=== PATIENT | male | born 1950 | race Two or more races ===

== ENCOUNTER 2022-09-19 12:31 | Inpatient (IN) | payer OTHER ==
[~2022-09-19] VITALS: Ht 180.3 cm; Wt 997.9 kg
--- NOTE | 2022-09-19 12:41 | NUR ---
PTE ALERTA ERNA DESORIENTADO POR BRIANNA ESFERAS VIENE EN MATILDE POR AMBULANCIA. EMT REFIERE QUE BUSCO A PTE EN HOTEL QUE SE ESTABA QUEDANDO, LO ENCONTRARON ESNUDO Y MARINA BULTO LLENO DE 5+ POTES DE OXYCODONE. SE PRESENTA A MEDICO DE TURNO, EL MISMO REFIERE UBICARLO EN AREA DE CHEST PAIN
--- NOTE | 2022-09-19 12:42 | NUR ---
SE OBSERVA PIERNAS EDEMATOSA CON ERITEMA.
--- NOTE | 2022-09-19 13:38 | NUR ---
SE RECIBE PTE MASCULINO DE 72 ANSO ALERTA Y ORIENTADO X3 QUIEN AL MOMENTO NO REFIERE DOLOR. PTE ES EVALUADO POR DR ORTEGA QUIEN [place]DE[place] MED. SE EDUCA A PTE SOBRE EL MISMO Y REFIER ENETNDER. SE LLEVA ACABO VENO PUNCION Y SE COLOECTAN MUESTRAS BETTIE ORDENADO Y MANTENIENDO MEDIDAS ACEPTICAS. PTE PEND A RESULTADOS DE LAB. PTE SE MANTIENE CONECTADO A MONITOR CARDIACO ALFRED.
--- NOTE | 2022-09-19 15:55 | NUR ---
SE RECIBE PACIENTE MASCULINO DE 72 ANOS DE EDAD UBICADO EN AREA DE CHEST PAIN EN MATILDE CON BARANDAS ELAVADAS. PACIENTE AL MOMENTO ALERTA, Y DESORIENTADO. ES ENTREGADO POR GLORIA ELIAS CUAL ORIENTA SOBRE EL SHANNEN. EL MISMO CONECTADO A MONITOR CARIDACO OXIMETRIA, MANTIENE DRIP DE LEVOPHED DE MG IV BAJANDO A 4ML/HRS. ADEMAS MANTIENE TERAPIA INTRAVENOSA DE .9NSS BAJANDO A 100ML/HRS. PACIENTE AL MOMENTO ESTABLE DENTRO DE MARINA CONDICIONEN ESPERA DE CONSULTA CON MEDICINA INTERNA.
--- NOTE | 2022-09-19 16:45 | NUR ---
PTE DESORIENTADO SE LE HABLA Y NO RESPONDE CORRECTAMENTE, SE LE RELAIZA PRUEBA DE COVID-19 AG POR ORDEN MEDICA, SE LE INSERTA FOLLEY BAJO MEDIDAS ESTERILES, SE LE INSERTA FOLLEY #[id number]. SE HACE CAMBIO DE SANABAS Y SE ACOMODA PTE EN MATILDE.
--- NOTE | 2022-09-19 17:21 | NUR ---
PTE ES ESCOLTADO A ESTUDIO DE CT NOY GLORIA DE LOS SANT[place] ES ACOMPANADO POR ESCOLTA, PROCESO ES REALIZADO EXITOSAMENTE.
== END 2022-10-07 07:04 | disposition expired | DRG 870 ==
LOC: ER 12:31 → ICU-2 21:04 → ICU 21:04
PROVIDERS: ADMIT Internal Medicine; ATTEND Internal Medicine
PROC: 02HV33Z Insertion of Infusion Device into Superior Vena Cava, Percutaneous Approach (ICD-10-PCS; 2022-09-21)
PROC: 30243R1 Transfusion of Nonautologous Platelets into Central Vein, Percutaneous Approach (ICD-10-PCS; 2022-09-27)
PROC: 30243N1 Transfusion of Nonautologous Red Blood Cells into Central Vein, Percutaneous Approach (ICD-10-PCS; 2022-09-28)
PROC: 5A1955Z Respiratory Ventilation, Greater than 96 Consecutive Hours (ICD-10-PCS; principal; 2022-09-29)
PROC: 0BH17EZ Insertion of Endotracheal Airway into Trachea, Via Natural or Artificial Opening (ICD-10-PCS; 2022-09-29)
DX: A41.1 Sepsis due to other specified staphylococcus (principal); I21.A1 Myocardial infarction type 2; U07.1 COVID-19; R65.21 Severe sepsis with septic shock; J12.82 Pneumonia due to coronavirus disease 2019; J96.00 Acute respiratory failure, unspecified whether with hypoxia or hypercapnia; L03.116 Cellulitis of left lower limb; L03.115 Cellulitis of right lower limb; K92.1 Melena; N17.9 Acute kidney failure, unspecified; J98.11 Atelectasis; E87.20 Acidosis, unspecified; K70.30 Alcoholic cirrhosis of liver without ascites; I48.91 Unspecified atrial fibrillation; E87.6 Hypokalemia; K76.82 Hepatic encephalopathy; I73.9 Peripheral vascular disease, unspecified; F10.10 Alcohol abuse, uncomplicated; F11.10 Opioid abuse, uncomplicated; I12.9 Hypertensive chronic kidney disease with stage 1 through stage 4 chronic kidney disease, or unspecified chronic kidney disease; N18.9 Chronic kidney disease, unspecified
CPT/HCPCS: 70544